=== PATIENT | male | born 1945 | race Caucasian/White ===

== ENCOUNTER 2023-06-28 22:04 | Emergency (ER) | payer MEDICARE, OTHER, SELFPAY ==
[2023-06-28 22:06] VITALS: BP 159/111
--- NOTE | 2023-06-28 22:50 | ED.GENMED ---
History of Present Illness
General
Chief Complaint: Breathing Problem
Source: patient
Exam Limitations: none
Time Seen by Provider: 06/28/23 22:32
Nursing documentation reviewed up to this point in time: agreed with
Travel History
Have you had any contact with someone who has COVID-19?: No
Do you have any symptoms of coronavirus? Fever > 100 degrees, chills, cough, shortness of breath, sore throat, loss of taste or smell, muscle aches, or headache?: No
History of Present Illness
History of Present Illness:
Patient presents to ED secondary to persistent left-sided rib pain after trip and fall this afternoon. Patient states that he lost balance after tripping over, hitting metal box. Since then, patient has had persistent pain with difficulty
breathing, secondary to rib pain. Denies nausea or vomiting. In addition, afterwards, patient also noted small abrasion/laceration over his left lower leg above his arvizu, along with mild pain. Patient does not take any blood thinning medications.
Past History
Past History
ED Past Medical History: GERD and Other (Colon polyps, sleep apnea, diverticulosis, rheumatoid arthritis)
ED Past Surgical History: Orthopedic (Carpal time of release, right knee surgery), Tonsilectomy and Other (Umbilical hernia repair)
Social History
Tobacco: Non-smoker
Alcohol: Daily
Drug: None
Personal: Single
Living: with roommate
Employment: Retired
Family History
Family History: Cancer
Review of Systems
Review of Systems
Allergies reviewed?: Yes
All Other Systems: ROS reviewed and negative except as documented in HPI and ROS
Constitutional: Reports no symptoms
EENT: Reports no symptoms
Respiratory: Reports trouble breathing
Cardiac: Reports no symptoms
ABD/GI: Reports no symptoms
Musculoskeletal: Reports other (Rib pain)
Skin: Reports other (Leg abrasion with ecchymosis)
Neurological: Reports no symptoms
Phy Exam
Physical Exam
Physical Exam:
Physical Exam
General: mild painful distress, not acutely ill. afebrile
Head: nc/at. eomi
Neck: supple. no meningeal signs.
Heart: s1/s2 regular rate and rhythm, no murmur. equal radial pulses.
Lungs: mild respiratory distress. clear bilaterally. tenderness to palpation over left rib 7-10 along midaxillary line, without deformity/swelling/ecchymosis.
Abdomen: normal bowel sounds. not tender.
Neuro: alert and oriented. no focal neurological deficits
Skin: linear abrasion with ecchymosis noted over anterior surface of left lower leg.
Psychiatric: well kept. interactive and cooperative
Extremities: no edema. no calf tenderness.
Scores
Heart Failure Risk
Heart Failure Risk Score: Not Applicable
Course
Orders/Labs/Results
Orders:
Orders
06/28/23 22:09
CR Ribs-left 3 Vw W/pa Chest Urgent
Comment:
Reason For Exam: fall on left side
06/28/23 22:11
Electrocardiogram (*1) Urgent
Reason for Study: Shortness of Breath
06/28/23 22:40
Oxycodone/Acetaminophen [Percocet 5/325] 1 tablet PO NOW STA
06/28/23 22:50
Oxycodone/Acetaminophen [Percocet 5/325] 1 tablet PO NOW STA
CR Leg Tibia/fibula Left 2 Vw Urgent
Comment:
Reason For Exam: trauma
06/29/23 00:31
HYDROmorphone [Dilaudid] 0.5 mg IV NOW STA
06/29/23 00:43
IV Insert/Care/Rem.- Treatment PRN
06/29/23 01:01
Type+Screen Urgent
Basic Metabolic Panel Urgent
Complete Blood Count/No Diff Urgent
PTT Urgent
Prothrombin Time Urgent
Abnormal Lab Results
06/29/23
01:01
RBC 4.67 L 10^6/uL
(4.70-6.10)
MCH 31.5 H pg
(27.0-31.0)
BUN 23 H mg/dl
(9-20)
Glucose 127 H mg/dl
(70-99)
06/29/23 01:01
06/29/23 01:01
Vital Signs
Initial and Last Documented VS:
Initial Vital Signs
Temp Pulse Resp BP Pulse Ox
98.6 F 113 18 159/111 95
06/28/23 22:06 06/28/23 22:06 06/28/23 22:06 06/28/23 22:06 06/28/23 22:06
Last Documented Vital Signs
Temp Pulse Resp BP Pulse Ox
98.6 F 83 18 131/87 95
06/28/23 22:06 06/29/23 02:55 06/29/23 02:55 06/29/23 02:55 06/29/23 02:55
MDM/Problems Addressed
MDM/Problems Addressed:
Multiple rib fx noted on x-ray, without any evidence of pneumothorax.
Discussed with trauma surgeon @ [facility] () who agreed to accept the patient for transfer.
Transfer consent on the chart.
Pt is hemodynamically stable though with mild pain at time of discharge.
*Critical Care Note
Total Time (30-74mins, 75-104mins- exclusive of procedures): Not Applicable
ED Attending Note
-
Portions of this chart may have been created with voice recognition software.� Occasional wrong word or��sound alike� substitutions may have occurred due to the inherent limitations of voice recognition software.
Discharge Plan
Departure
Patient Disposition: Acute Care Hospital
Date of Disposition: 06/29/23
Time of Disposition: 00:31
Condition: Fair
Discharge Problem:
Fracture, rib
Prescriptions:
No Action
citalopram 20 MG tablet
20 mg PO DAILY
cephalexin 500 MG tablet
500 mg PO BID
celecoxib 100 MG capsule
100 mg PO DAILY
prednisone 20 MG tablet
20 mg PO DAILY Qty: 8 0RF
Rx Instructions:
2 tablets once a day for four days
oxycodone 5 MG tablet
5 mg PO Q6HPRN PRN (Reason: pain) Qty: 6 0RF
albuterol sulfate 1 PUFF HFA aerosol inhaler
2 puff inhalation R Q4HPRN PRN (Reason: cough, wheezing) Qty: 1 0RF
prednisone 20 MG tablet
20 mg PO BID Qty: 14 0RF
albuterol sulfate [Proventil HFA] 90 MCG/PUFF HFA aerosol inhaler
1 - 2 puff inhalation Q4HPRN PRN (Reason: shortness of breath) Qty: 1 0RF
Referrals:
Monique Sierra DO [Family Provider] -
Hospital Transfer
Other hospital: [facility]
I certify that the patient requires transfer: Yes
Discussed case with accepting physician:
Reason for transfer: higher level of care, medical necessity, availability of service and specialties available
Interventions
Interventions:
*Risk Screen - Suicide Last Done: 06/28/23 22:06
*General Assessment Last Done: 06/28/23 22:06
*Neglect/Abuse Screening Last Done: 06/28/23 22:06
ED- Fall Risk Assessment Last Done: 06/28/23 23:01
*ED COVID-19 Vaccine History Last Done: 06/28/23 22:06
*Nursing Disposition Last Done: 06/29/23 02:55
ED- Cardiac Assessment Last Done: 06/28/23 23:01
ED- Pulmonary Assessment Last Done: 06/28/23 23:01
Discharge Date and Time
Discharge Date/Time: 06/29/23 02:57
[2023-06-28] MEDS: PERCOCET 5/325 1 TABLET PO (22:52)
[2023-06-28 22:56] VITALS: BP 155/85; BMI 32.9
[2023-06-28 23:00] VITALS: BP 146/79
[2023-06-29] MEDS: DILAUDID 0.5 MG IV (01:02)
[2023-06-29 01:03] VITALS: BP 136/88
[2023-06-29 01:22] LABS: Hematocrit 41.7 % (39.0-52.0); Hemoglobin 14.7 g/dL (13.0-18.0); Mean Corp Hgb Conc. 35.3 g/dL (33.0-37.0); Mean Corpuscular Hgb 31.5 pg (27.0-31.0); Mean Corpuscular Volume 89.3 fL (80.0-94.0); Mean Platelet Volume 9.1 fL (7.4-10.4); Platelet Count 232 10^3/uL (130-400); Red Blood Cell Count 4.67 10^6/uL (4.70-6.10); White Blood Cell Count 10.4 10^3/uL (4.8-10.8)
[2023-06-29 01:34] LABS: APTT 32.5 Sec (23.4-35.0); INR 1.05; PT 13.5 Sec (11.4-14.6)
[2023-06-29 01:37] LABS: Blood Urea Nitrogen 23 mg/dl (9-20); Calcium 9.1 mg/dl (8.4-10.2); Carbon Dioxide 27 mmol/L (22-30); Chloride 103 mmol/L (98-107); Estimated Creatinine Clearance 93 ml/min; Glucose 127 mg/dl (70-99); Potassium 4.9 mmol/L (3.5-5.1); Sodium 137 mmol/L (135-145); eGFR > 60.00
[2023-06-29 02:00] VITALS: BP 115/69
[2023-06-29 02:55] VITALS: BP 131/87
== END 2023-06-29 02:57 | disposition short-term general hospital (02) ==
LOC: EMR 22:04
PROVIDERS: EMERGENCY PHYSICIAN Emergency Medicine; FAMILY PHYSICIAN Family Medicine
DX: S22.42XA Multiple fractures of ribs, left side, initial encounter for closed fracture (principal); W01.0XXA Fall on same level from slipping, tripping and stumbling without subsequent striking against object, initial encounter
CPT/HCPCS: 99285; 96374; 71101; 73590; 80048; 85027; 85610; 85730; 86850; 86900; 86901; 93005

== ENCOUNTER → 2023-07-11 11:31 | Outpatient (REF) | payer MEDICARE, OTHER, SELFPAY | LOC: RAD 11:31 | PROVIDERS: ATTENDING PHYSICIAN Physician Assistant Medical | DX: S22.42XS Multiple fractures of ribs, left side, sequela (principal); R06.02 Shortness of breath; R05.1 Acute cough | CPT/HCPCS: 71046 ==

== ENCOUNTER → 2023-07-17 10:52 | Outpatient (REF) | payer MEDICARE, OTHER, SELFPAY | LOC: RAD 10:52 | PROVIDERS: ATTENDING PHYSICIAN Family Medicine | DX: M79.89 Other specified soft tissue disorders (principal); R60.0 Localized edema | CPT/HCPCS: 93971 ==

== ENCOUNTER → 2023-08-05 10:21 | Outpatient (REF) | payer MEDICARE, OTHER, SELFPAY | LOC: RAD 10:21 | PROVIDERS: ATTENDING PHYSICIAN Family Medicine; FAMILY PHYSICIAN Physician Assistant Medical | DX: S22.42XS Multiple fractures of ribs, left side, sequela (principal); R93.89 Abnormal findings on diagnostic imaging of other specified body structures; M85.89 Other specified disorders of bone density and structure, multiple sites | CPT/HCPCS: 71046; 77080 ==

== ENCOUNTER → 2023-08-13 07:32 | Outpatient (REF) | payer MEDICARE, OTHER, SELFPAY ==
[2023-08-13 08:40] LABS: % Basophils 0.7 % (0-2); % Eosinophils 6.2 % (0-6); % Immature Granulocytes 0.5 % (0-0.5); % Monocytes 10.6 % (1.7-9.3); Absolute Basophils 0.1 10^3/uL (0-0.2); Absolute Eosinophils 0.5 10^3/uL (0-0.7); Absolute Lymphocytes 0.8 10^3/uL (1.2-3.4); Absolute Monocytes 0.8 10^3/uL (0.1-0.6); Absolute Neutrophils 5.5 10^3/uL (1.4-6.5); Hematocrit 41.6 % (39.0-52.0); Hemoglobin 13.5 g/dL (13.0-18.0); Mean Corp Hgb Conc. 32.5 g/dL (33.0-37.0); Mean Corpuscular Hgb 30.7 pg (27.0-31.0); Mean Corpuscular Volume 94.5 fL (80.0-94.0); Mean Platelet Volume 9.1 fL (7.4-10.4); Nucleated Red Blood Cells % 0 % (-); Platelet Count 295 10^3/uL (130-400); Red Cell Dist. Width 12.9 % (11.5-14.5); White Blood Cell Count 7.6 10^3/uL (4.8-10.8)
[2023-08-13 09:26] LABS: Glycohemoglobin (HgbA1c) 5.6 % (4.0-5.6)
[2023-08-13 09:28] LABS: ALT (SGPT) 14 U/L (0-50); AST (SGOT) 18 U/L (17-59); Albumin 4.2 g/dl (3.5-5.0); Alkaline Phosphatase 149 U/L (38-126); Blood Urea Nitrogen 22 mg/dl (9-20); Calcium 9.4 mg/dl (8.4-10.2); Carbon Dioxide 26 mmol/L (22-30); Chloride 99 mmol/L (98-107); Glucose 108 mg/dl (70-99); HDL Cholesterol 59 mg/dl; LDL Cholesterol, Calculated 117 mg/dl; Potassium 4.8 mmol/L (3.5-5.1); Sodium 137 mmol/L (135-145); Total Bilirubin 1.1 mg/dl (0.2-1.3); Total Cholesterol 194 mg/dl (50-199); Total Protein 7.7 g/dl (6.3-8.2); Triglyceride 91 mg/dl (10-149); Very Low Density Lipoprotein 18 mg/dl (0-30); eGFR > 60.00
[2023-08-13 09:36] LABS: Vitamin D, 25-OH*** 21.9 ng/mL (30-80)
== END ==
LOC: REG 07:32
PROVIDERS: ATTENDING PHYSICIAN Family Medicine
DX: R73.01 Impaired fasting glucose (principal); E78.2 Mixed hyperlipidemia; M85.89 Other specified disorders of bone density and structure, multiple sites; L03.116 Cellulitis of left lower limb; L81.9 Disorder of pigmentation, unspecified
CPT/HCPCS: 36415; 80053; 80061; 82306; 83036; 85025

== ENCOUNTER → 2023-10-13 12:02 | Outpatient (REF) | payer MEDICARE, OTHER, SELFPAY ==
[2023-10-13 12:49] LABS: % Basophils 0.6 % (0-2); % Eosinophils 4.6 % (0-6); % Immature Granulocytes 0.6 % (0-0.5); % Lymphocytes 12.5 % (20.5-51.1); % Monocytes 9.9 % (1.7-9.3); % Neutrophils 71.8 % (42.2-75.2); Absolute Eosinophils 0.3 10^3/uL (0-0.7); Absolute Lymphocytes 0.8 10^3/uL (1.2-3.4); Absolute Monocytes 0.7 10^3/uL (0.1-0.6); Absolute Neutrophils 4.7 10^3/uL (1.4-6.5); Hematocrit 41.6 % (39.0-52.0); Hemoglobin 14.2 g/dL (13.0-18.0); Mean Corp Hgb Conc. 34.1 g/dL (33.0-37.0); Mean Corpuscular Hgb 30.4 pg (27.0-31.0); Mean Corpuscular Volume 89.1 fL (80.0-94.0); Mean Platelet Volume 8.7 fL (7.4-10.4); Nucleated Red Blood Cells % 0 % (-); Platelet Count 274 10^3/uL (130-400); Red Blood Cell Count 4.67 10^6/uL (4.70-6.10); White Blood Cell Count 6.6 10^3/uL (4.8-10.8)
[2023-10-13 13:15] LABS: ALT (SGPT) 12 U/L (0-50); AST (SGOT) 18 U/L (17-59); Albumin 3.8 g/dl (3.5-5.0); Alkaline Phosphatase 143 U/L (38-126); Alkaline Phosphatase, Total 143 U/L (38-126); Blood Urea Nitrogen 18 mg/dl (9-20); Carbon Dioxide 28 mmol/L (22-30); Chloride 102 mmol/L (98-107); Glucose 118 mg/dl (70-99); HDL Cholesterol 74 mg/dl; LDL Cholesterol, Calculated 132 mg/dl; Potassium 4.3 mmol/L (3.5-5.1); Sodium 140 mmol/L (135-145); Total Bilirubin 0.7 mg/dl (0.2-1.3); Total Cholesterol 220 mg/dl (50-199); Total Protein 7.6 g/dl (6.3-8.2); Triglyceride 72 mg/dl (10-149); Very Low Density Lipoprotein 14 mg/dl (0-30); eGFR > 60.00
[2023-10-13 13:38] LABS: Vitamin D, 25-OH*** 25.6 ng/mL (30-80)
[2023-10-13 15:54] LABS: Absolute Neutrophils -Man Diff 4.7 10^3/uL (1.4-6.5); Band Neutrophils 0 % (0-3); Eosinophils 8 % (0-6); Lymphocytes 13 % (20-51); Monocytes 7 % (2-9); Platelets Checked Yes; Segmented Neutrophils 72 % (42-75)
[2023-10-13 15:55] LABS: Normal RBC Morphology Yes
[2023-10-13 15:56] LABS: Total Cells Counted 100
[2023-10-13 18:06] LABS: Alk Phos After Heat 104; Alkaline Phosphatase Percent 72.73
== END ==
LOC: REG 12:02
PROVIDERS: ATTENDING PHYSICIAN Family Medicine; REFERRING PHYSICIAN Specialist
DX: C61 Malignant neoplasm of prostate (principal); R74.8 Abnormal levels of other serum enzymes; R79.89 Other specified abnormal findings of blood chemistry; E78.00 Pure hypercholesterolemia, unspecified; E55.9 Vitamin D deficiency, unspecified
CPT/HCPCS: 36415; 80053; 80061; 82306; 84078; 84153; 85025

== ENCOUNTER → 2023-12-03 09:30 | Outpatient (REF) | payer MEDICARE, OTHER, SELFPAY | LOC: MRI 3T 09:30 | PROVIDERS: ATTENDING PHYSICIAN Specialist; PRIMARYCARE PHYSICIAN Family Medicine | DX: R97.20 Elevated prostate specific antigen [PSA] (principal) | CPT/HCPCS: 72197; A9575 ==

== ENCOUNTER → 2023-12-10 14:32 | Outpatient (REF) | payer MEDICARE, OTHER, SELFPAY | LOC: RCS 14:32 | PROVIDERS: ATTENDING PHYSICIAN Physician Assistant Medical; FAMILY PHYSICIAN Family Medicine | DX: R07.89 Other chest pain (principal); R06.02 Shortness of breath | CPT/HCPCS: 93306 ==

== ENCOUNTER → 2023-12-18 07:07 | Outpatient (REF) | payer MEDICARE, OTHER, SELFPAY | LOC: DHCBC/DCA 07:07 | PROVIDERS: ATTENDING PHYSICIAN Physician Assistant Medical; FAMILY PHYSICIAN Family Medicine | DX: R07.89 Other chest pain (principal); R06.02 Shortness of breath | CPT/HCPCS: 78452; 93017; A9500; J2785 ==

== ENCOUNTER → 2024-01-30 12:51 | Outpatient (REF) | payer MEDICARE, OTHER, SELFPAY ==
[2024-01-30 14:27] LABS: ALT (SGPT) 15 U/L (0-50); AST (SGOT) 19 U/L (17-59); Albumin 4.1 g/dl (3.5-5.0); Alkaline Phosphatase 106 U/L (38-126); Blood Urea Nitrogen 21 mg/dl (9-20); Calcium 9.1 mg/dl (8.4-10.2); Carbon Dioxide 26 mmol/L (22-30); Chloride 102 mmol/L (98-107); GGTP 42 U/L (15-73); Glucose 106 mg/dl (70-99); Potassium 4.5 mmol/L (3.5-5.1); Sodium 140 mmol/L (135-145); Total Bilirubin 0.6 mg/dl (0.2-1.3); Total Protein 7.7 g/dl (6.3-8.2); eGFR > 60.00
[2024-01-30 14:41] LABS: Vitamin D, 25-OH*** 39.3 ng/mL (30-80)
== END ==
LOC: REG 12:51
PROVIDERS: ATTENDING PHYSICIAN Family Medicine
DX: R05.3 Chronic cough (principal); J45.20 Mild intermittent asthma, uncomplicated; M85.89 Other specified disorders of bone density and structure, multiple sites; E55.9 Vitamin D deficiency, unspecified; R74.8 Abnormal levels of other serum enzymes
CPT/HCPCS: 36415; 71046; 80053; 82306; 82977

== ENCOUNTER → 2024-02-10 08:53 | Outpatient (REF) | payer MEDICARE, OTHER, SELFPAY | LOC: HWRAD 08:53 | PROVIDERS: ATTENDING PHYSICIAN Family Medicine; REFERRING PHYSICIAN Internal Medicine Critical Care Medicine | DX: R05.3 Chronic cough (principal) | CPT/HCPCS: 71250 ==

== ENCOUNTER → 2024-04-14 09:59 | Outpatient (REF) | payer MEDICARE, OTHER, SELFPAY | LOC: WDC 09:59 | PROVIDERS: ATTENDING PHYSICIAN Family Medicine | DX: N64.4 Mastodynia (principal); R59.0 Localized enlarged lymph nodes | CPT/HCPCS: 76642; 77062; 77066 ==

== ENCOUNTER 2024-05-02 20:18 | Emergency (ER) | payer MEDICARE, OTHER, SELFPAY ==
[2024-05-02 20:22] VITALS: BP 196/108
--- NOTE | 2024-05-02 23:08 | ED.GENMED ---
History of Present Illness
General
Chief Complaint: Back Pain
Source: patient
Exam Limitations: none
Time Seen by Provider: 05/02/24 22:20
Nursing documentation reviewed up to this point in time: agreed with except ( Patient denies chronic back pain.)
History of Present Illness
History of Present Illness:
This is a 78-year-old obese gentleman who resides at home alone, independently. He has history of rheumatoid arthritis, COPD with chronic cough, obstructive sleep apnea intolerant to CPAP, hyperlipidemia, GERD. He also has history of prostate
cancer, follows with urology and currently prostate cancer is being monitored/has not required treatment.
He has history of COPD, chronic cough, chronic dyspnea on exertion and follows with plastic design applier.
He has history of chronic rash, maintained on Dupixent as per dermatology.
He has history of chronic bilateral elbow arthritis, follows with orthopedics. Bilateral elbow arthritis thought to be related to rheumatoid arthritis and he admits that he has not been evaluated by telephone information clerk in quite some time. More
recently, over the past few weeks he has had some left low back pain. No insightful injury nor fall but he does admit that left low back pain is much worse with movement, worse with attempting to get up out of the chair, worse with rolling over in
bed, much worse with bending over, and worse when bearing down to pass a bowel movement. He does admit that his stools are somewhat chronically hard, he has been maintained on a daily stool softener for the past few months. He denies abdominal
pain, no fevers or chills, no rash, no dysuria and urgency and or hematuria. Pain is occasionally worse with cough but no pain with deep breath, no associated chest pain nor palpitations. Left low back pain is nonradiating, he denies leg pain nor
weakness, no swelling.
He does note increased left low back pain with ambulation but has not required assistive devices to ambulate.
He has been taking Aleve sporadically for pain. Has not taken anything today.
He does have history of GERD, follows with GI. Patient reports he has not been told to avoid NSAIDs.
He follows with Dr. Loya. Upon review of records most recent PSA October of this year trended up from 6.5 03/2023 to 11.1.
Past History
Past History
ED Past Medical History: Cancer (Prostate cancer), COPD, GERD, Hypercholesterolemia and Other (Colon polyps, sleep apnea, diverticulosis, rheumatoid arthritis, chronic dermatitis)
ED Past Surgical History: Orthopedic (Carpal time of release, right knee surgery), Tonsilectomy and Other (Umbilical hernia repair)
Social History
Tobacco: Non-smoker
Alcohol: Daily (Admits to 2-3 drinks daily)
Drug: None
Personal: Single
Living: alone
Employment: Retired
Family History
Family History: Cancer
Phy Exam
Physical Exam
Physical Exam:
GENERAL: 78-year-old obese gentleman appears his stated age. Bright and alert, pleasant, very mild resting tachypnea noted but able to speak in full sentences, easily communicative. Appears moderately uncomfortable when attempting to reposition
otherwise in no distress when lying Semi-Cheema's.
EYE: pupils equal and reactive. anicteric
NECK: Supple, nontender, no meningismus, no significant adenopathy.
ENT: posterior pharynx is clear, oral mucosa is moist. TM clear b/l, nares patent.
CARDIAC: Regular rate and rhythm. no murmur.
LUNGS: Mild resting tachypnea, scant, scattered end expiratory wheezing.
ABDOMEN: Obese, soft, nondistended, without focal tenderness, no r/g, no cvat. normoactive BS.
BACK: No midline bony tenderness. Mild tenderness left mid to lower paralumbar region. Mild left paralumbar muscular ropiness noted. Straight leg raising is negative bilaterally.
NEUROLOGICAL: Alert and oriented x3, no focal neuro deficits. Motor strength is 5/5 bilaterally. Gross sensation intact.
SKIN: Warm and dry, normal color, skin intact. Scattered focal crusts about the scalp.
MUSCULOSKELETAL: No clubbing or cyanosis, trace pretibial edema bilateral lower extremities. peripheral pulses are full and equal b/l. No palpable tenderness.
PSYCH: Normal and appropriate interaction.
Course
Orders/Labs/Results
Orders:
Orders
05/02/24 22:53
Urinalysis Reflex To Culture Urgent
Date Specimen was Collected: 05/03/24
Time Specimen was Collected: 00:25
Ketorolac [Toradol] 60 mg IM NOW STA
Lumbar Spine Complete, 4 View [CR Lumbar Spine Comp Min 4 Vw*] Urgent
Comment:
Reason For Exam: LEFT LOW BACK PAIN
05/02/24 23:22
CRP [C-Reactive Protein] Urgent
Complete Blood Count/With Diff Urgent
Comprehensive Metabolic Panel Urgent
PSA, Total - Diagnostic Urgent
Sed Rate [Erythrocyte Sed Rate] Urgent
Abnormal Lab Results
05/02/24
23:22
RBC 4.39 L 10^6/uL
(4.70-6.10)
MCH 31.2 H pg
(27.0-31.0)
Abs Immat Gran (auto) 0.1 H 10^3/uL
(0-0.05)
Absolute Lymphs (auto) 0.8 L 10^3/uL
(1.2-3.4)
Absolute Monos (auto) 0.9 H 10^3/uL
(0.1-0.6)
Immature Gran % 0.7 H %
(0-0.5)
Lymphocytes % 11.4 L %
(20.5-51.1)
Monocytes % 12.2 H %
(1.7-9.3)
ESR 37 H mm/hour
(0-20)
Sodium 132 L mmol/L
(135-145)
Chloride 97 L mmol/L
(98-107)
Glucose 138 H mg/dl
(70-99)
C-Reactive Protein 39.50 H mg/L
(0.0-10.00)
05/02/24 23:22
05/02/24 23:22
Vital Signs
Initial and Last Documented VS:
Initial Vital Signs
Temp Pulse Resp BP Pulse Ox
98.2 F 93 20 196/108 97
05/02/24 20:22 05/02/24 20:22 05/02/24 20:22 05/02/24 20:22 05/02/24 20:22
Last Documented Vital Signs
Temp Pulse Resp BP Pulse Ox
98.2 F 81 20 143/80 96
05/02/24 20:22 05/03/24 00:54 05/03/24 00:54 05/03/24 00:54 05/03/24 00:54
MDM/Problems Addressed
Differential Diagnosis Includes:
History and exam most consistent with musculoskeletal left low back pain. Reassuring that he has no radicular signs or symptoms and nothing to suggest infectious process.
He does have history of rheumatoid arthritis thus concern for exacerbation of spinal related rheumatoid arthritis versus lumbar DJD.
He also has history of prostate cancer with uptrend in PSA 6 months ago, concern for progression of prostate cancer, bony metastatic disease.
He is noted to have very mild resting tachypnea which patient states is chronic and unchanged. He notes chronic cough that is overall unchanged, he follows regularly with plastic design applier, Dr. Dang. Nothing to suspect acute pleuritic nor chest
related issue.
Abdomen is soft without appreciable tenderness. Nothing to indicate acute intra-abdominal process. There is no CVA tenderness on exam but must consider urologic origin such as UTI, pyelonephritis.
Will check labs, inflammatory markers, PSA, urinalysis. Will check lumbar spine x-ray.
Will medicate for pain with Toradol.
Chronic conditions affecting care: COPD, Cancer (Prostate cancer) and Other (Rheumatoid arthritis)
*Radiology
Radiology exam reviewed: preliminary read by ED provider (Lumbar spine x-ray shows moderate global DJD but no evidence of fracture, no evidence of blastic nor lytic lesions.)
*Pulse Oximetry
Patient hypoxic: no
*Critical Care Note
Total Time (30-74mins, 75-104mins- exclusive of procedures): Not Applicable
Update Note
Update Note:
01:00
Patient feeling markedly improved after dose of Toradol. Able to get up and ambulate unassisted.
Labs are all unremarkable save for mildly elevated inflammatory markers.
Urinalysis is unremarkable.
PSA is pending.
Will trial a course of Celebrex for pain. Discussed the utmost importance of avoiding all other NSAIDs while taking Celebrex including Aleve. He may take Tylenol if needed for fever or other pains.
Recommend prompt follow-up with PCP and do to history of rheumatoid arthritis, chronic elbow pain and inflammation recommend follow-up with rheumatology as well.
ED Attending Note
-
Portions of this chart may have been created with voice recognition software.� Occasional wrong word or��sound alike� substitutions may have occurred due to the inherent limitations of voice recognition software.
Discharge Plan
Departure
Patient Disposition: Home (Routine Discharge)
Date of Disposition: 05/03/24
Time of Disposition: 01:08
Patient with high blood pressure during this ER visit?: No
Condition: Good
Discharge Problem:
Acute lumbar myofascial strain, DDD (degenerative disc disease), lumbar
Instructions: Low Back Pain (DC)
Prescriptions:
New
celecoxib [Celebrex] 100 mg capsule
100 mg PO BID Qty: 60 0RF
No Action
citalopram 20 MG tablet
20 mg PO DAILY
cephalexin 500 MG tablet
500 mg PO BID
celecoxib 100 MG capsule
100 mg PO DAILY
prednisone 20 MG tablet
20 mg PO DAILY Qty: 8 0RF
Rx Instructions:
2 tablets once a day for four days
oxycodone 5 MG tablet
5 mg PO Q6HPRN PRN (Reason: pain) Qty: 6 0RF
albuterol sulfate 1 PUFF HFA aerosol inhaler
2 puff inhalation R Q4HPRN PRN (Reason: cough, wheezing) Qty: 1 0RF
prednisone 20 MG tablet
20 mg PO BID Qty: 14 0RF
albuterol sulfate [Proventil HFA] 90 MCG/PUFF HFA aerosol inhaler
1 - 2 puff inhalation Q4HPRN PRN (Reason: shortness of breath) Qty: 1 0RF
Referrals:
Lyla Rowe MD [Consulting Staff] - Call in 1-3 days for appt
Monique Sierra DO [Family Provider] - Call in 1-3 days for appt
Interventions
Interventions:
*Risk Screen - Suicide Last Done: 05/02/24 21:14
*General Assessment Last Done: 05/02/24 20:22
*Neglect/Abuse Screening Last Done: 05/02/24 21:14
ED-Musculoskeletal Assessment Last Done: 05/02/24 21:13
Discharge Date and Time
Print Language: [place]
[2024-05-02] MEDS: TORADOL 60 MG IM (23:32)
[2024-05-02 23:41] LABS: % Basophils 0.6 % (0-2); % Immature Granulocytes 0.7 % (0-0.5); % Lymphocytes 11.4 % (20.5-51.1); % Monocytes 12.2 % (1.7-9.3); % Neutrophils 72.1 % (42.2-75.2); Absolute Eosinophils 0.2 10^3/uL (0-0.7); Absolute Immature Granulocytes 0.1 10^3/uL (0-0.05); Absolute Lymphocytes 0.8 10^3/uL (1.2-3.4); Absolute Monocytes 0.9 10^3/uL (0.1-0.6); Absolute Neutrophils 5.1 10^3/uL (1.4-6.5); Hematocrit 39.6 % (39.0-52.0); Hemoglobin 13.7 g/dL (13.0-18.0); Mean Corp Hgb Conc. 34.6 g/dL (33.0-37.0); Mean Corpuscular Hgb 31.2 pg (27.0-31.0); Mean Corpuscular Volume 90.2 fL (80.0-94.0); Mean Platelet Volume 8.7 fL (7.4-10.4); Nucleated Red Blood Cells % 0 % (-); Platelet Count 222 10^3/uL (130-400); Red Blood Cell Count 4.39 10^6/uL (4.70-6.10); Red Cell Dist. Width 13.1 % (11.5-14.5)
[2024-05-02 23:44] LABS: ALT (SGPT) 17 U/L (0-50); AST (SGOT) 20 U/L (17-59); Albumin 3.8 g/dl (3.5-5.0); Alkaline Phosphatase 104 U/L (38-126); Blood Urea Nitrogen 13 mg/dl (9-20); Calcium 8.6 mg/dl (8.4-10.2); Carbon Dioxide 28 mmol/L (22-30); Chloride 97 mmol/L (98-107); Glucose 138 mg/dl (70-99); Potassium 4.5 mmol/L (3.5-5.1); Sodium 132 mmol/L (135-145); Total Bilirubin 0.9 mg/dl (0.2-1.3); Total Protein 7.2 g/dl (6.3-8.2); eGFR > 60.00
[2024-05-02 23:57] LABS: Erythrocyte Sed Rate 37 mm/hour (0-20)
[2024-05-03 00:54] VITALS: BP 143/80
[2024-05-03 01:03] LABS: Urine Albumin Negative (Neg - Trace); Urine Bilirubin Negative (Negative); Urine Character Clear (Clear); Urine Color Yellow; Urine Glucose Negative (Negative); Urine Ketone Negative (Negative); Urine Leukocyte Negative (Negative); Urine Nitrite Negative (Negative); Urine Occult Blood Negative (Negative); Urine Urobilinogen Negative (Neg - 1+)
[2024-05-03 05:09] LABS: PSA, Total - Diagnostic 4.64 ng/ml (0.0-4.0)
== END 2024-05-03 01:23 | disposition home or self-care (01) ==
LOC: EMR 20:18
PROVIDERS: EMERGENCY PHYSICIAN Emergency Medicine; FAMILY PHYSICIAN Family Medicine
DX: S39.012A Strain of muscle, fascia and tendon of lower back, initial encounter (principal); X58.XXXA Exposure to other specified factors, initial encounter; M47.816 Spondylosis without myelopathy or radiculopathy, lumbar region; M06.9 Rheumatoid arthritis, unspecified; J44.9 Chronic obstructive pulmonary disease, unspecified; G47.33 Obstructive sleep apnea (adult) (pediatric); E78.00 Pure hypercholesterolemia, unspecified; K21.9 Gastro-esophageal reflux disease without esophagitis; C61 Malignant neoplasm of prostate
CPT/HCPCS: 96372; 99284; 72110; 80053; 81003; 84153; 85025; 85652; 86140

== ENCOUNTER → 2024-06-01 09:29 | Outpatient (REF) | payer MEDICARE, OTHER, SELFPAY ==
[2024-06-01 10:49] LABS: ALT (SGPT) 17 U/L (0-50); AST (SGOT) 21 U/L (17-59); Alkaline Phosphatase 110 U/L (38-126); Blood Urea Nitrogen 18 mg/dl (9-20); Calcium 8.9 mg/dl (8.4-10.2); Carbon Dioxide 28 mmol/L (22-30); Chloride 100 mmol/L (98-107); Glucose 126 mg/dl (70-99); HDL Cholesterol 70 mg/dl; LDL Cholesterol, Calculated 116 mg/dl; Potassium 4.6 mmol/L (3.5-5.1); Sodium 137 mmol/L (135-145); Total Bilirubin 0.6 mg/dl (0.2-1.3); Total Cholesterol 201 mg/dl (50-199); Total Protein 7.8 g/dl (6.3-8.2); Triglyceride 75 mg/dl (10-149); Very Low Density Lipoprotein 15 mg/dl (0-30); eGFR > 60.00
[2024-06-01 12:01] LABS: Glycohemoglobin (HgbA1c) 6.1 % (4.0-5.6)
== END ==
LOC: REG 09:29
PROVIDERS: ATTENDING PHYSICIAN Student in an Organized Health Care Education/Training Program
DX: G62.9 Polyneuropathy, unspecified (principal); E87.1 Hypo-osmolality and hyponatremia
CPT/HCPCS: 36415; 80053; 80061; 83036; 84443

== ENCOUNTER → 2024-07-13 15:55 | Outpatient (REF) | payer MEDICARE, OTHER, SELFPAY | LOC: RCS 15:55 | PROVIDERS: ATTENDING PHYSICIAN Student in an Organized Health Care Education/Training Program; REFERRING PHYSICIAN Internal Medicine Cardiovascular Disease | DX: R06.02 Shortness of breath (principal); R60.0 Localized edema | CPT/HCPCS: 93306 ==

== ENCOUNTER → 2024-09-23 11:47 | Outpatient (REF) | payer MEDICARE, OTHER, SELFPAY ==
[2024-09-23 13:58] LABS: PSA, Total - Diagnostic 2.89 ng/ml (0.0-4.0)
== END ==
LOC: REG 11:47
PROVIDERS: ATTENDING PHYSICIAN Specialist; FAMILY PHYSICIAN Student in an Organized Health Care Education/Training Program
DX: C61 Malignant neoplasm of prostate (principal)
CPT/HCPCS: 36415; 84153

== ENCOUNTER → 2024-10-12 07:41 | Outpatient (REF) | payer MEDICARE, OTHER, SELFPAY | LOC: HWEVLT 07:41 | PROVIDERS: ATTENDING PHYSICIAN Radiology Diagnostic Radiology | DX: I83.893 Varicose veins of bilateral lower extremities with other complications (principal) | CPT/HCPCS: 93970 ==